=== PATIENT | male | born 1970 | race Caucasian/White ===

== ENCOUNTER 2017-08-15 00:09 | Emergency (ER) | payer OTHER ==
[2017-08-15 00:17] VITALS: RESP 18
[2017-08-15] MEDS ORDERED: HYDROcodone/APAP 7.5-325MG 1 EACH TAB PO ONE (00:29)
[2017-08-15] MEDS ORDERED: KETOROLAC 30 MG/ML 1 ML VIAL IM STA (00:29)
--- NOTE | 2017-08-15 00:47 | ED ---
Upper Extremity HPI - General Chief Complaint: Extremity Injury, Upper Stated Complaint: arm pain Time Seen by Provider: 08/15/17 00:21 Source: patient Mode of arrival: ambulatory Limitations: no limitations - History of Present Illness Initial Comments: 46-year-old male patient presents to the emergency department today for evaluation of right arm pain 1.5 months. Patient states that he initially injured the arm when he was playing catch with his son. States that he had increased pain after throwing the ball multiple times. Patient states that he is unable to maintain flexion of the right bicep against resistance since the injury. Patient feels that his right bicep muscles not working correctly. Patient states he is also been having significant right elbow pain and some mild swelling. Patient states tonight at work he was using a hammer, states that his pain increased significantly. States that the swelling in his right elbow increased significantly. Patient denies any redness to the joint. Denies any fevers or chills. States that the pain is severe. Denies any numbness or tingling to the arm. Patient denies any recent rash, shortness breath, chest pain, abdominal pain, nausea, vomiting, diarrhea, constipation, back pain, numbness, tingling, dizziness, weakness, hematuria, dysuria, urinary urgency, urinary frequency, headache, visual changes, or any other complaints. - Related Data Home Medications Medication Instructions Recorded Confirmed Albuterol Sulfate [Proair Hfa] 1 - 2 puff INHALATION RT-Q6H PRN 07/21/15 Previous Rx's Medication Instructions Recorded Albuterol Inhaler [Ventolin Hfa 1 - 2 puff INHALATION Q4H PRN #1 07/21/15 Inhaler] inhaler Doxycycline Monohydrate [Monodox] 100 mg PO Q12HR #14 cap 07/21/15 Hydrocodone/Acetaminophen [Carrier 1 tab PO Q6HR PRN #12 tab 08/15/17 5-325] Ibuprofen [Motrin] 600 mg PO Q8HR PRN #30 tab 08/15/17 Allergies Allergy/AdvReac Type Severity Reaction Status Date / Time aspirin AdvReac Chest Pain Verified 08/15/17 00:17 Review of Systems ROS Statement: Those systems with pertinent positive or pertinent negative responses have been documented in the HPI. ROS Other: All systems not noted in ROS Statement are negative. Past Medical History Past Medical History: Asthma Additional Past Medical History / Comment(s): gout History of Any Multi-Drug Resistant Organisms: None Reported Past Surgical History: Hernia Repair Past Psychological History: No Psychological Hx Reported Smoking Status: Light tobacco smoker Past Alcohol Use History: Daily Past Drug Use History: None Reported General Exam Limitations: no limitations General appearance: alert, in no apparent distress, other (This is a well- developed, well-nourished adult male patient in mild distress related to pain. Vital signs upon presentation are temperature 98.2F, pulse 97, respirations 18 , blood pressure 188/95, pulse ox 98% on room air.) Eye exam: Present: normal appearance, PERRL, EOMI. Absent: scleral icterus, conjunctival injection, periorbital swelling ENT exam: Present: normal exam, normal oropharynx, mucous membranes moist Respiratory exam: Present: normal lung sounds bilaterally. Absent: respiratory distress, wheezes, rales, rhonchi, stridor Cardiovascular Exam: Present: regular rate, normal rhythm, normal heart sounds. Absent: systolic murmur, diastolic murmur, rubs, gallop, clicks Extremities exam: Present: tenderness (Right upper arm tenderness, right elbow tenderness, right forearm tenderness...tenderness is circumfirential anywhere you touch the arm. ), normal capillary refill, other (Skin to the right arm is pink, warm, and dry. Cap refills less than 3 seconds. Radial pulses are 2+ and equal bilaterally. There is significant swelling noted to the right elbow. Patient is unable to move the right elbow without significant pain.). Absent : normal inspection, full ROM, pedal edema, joint swelling, calf tenderness Neurological exam: Present: alert, oriented X3, CN II-XII intact Psychiatric exam: Present: normal affect, normal mood Skin exam: Present: warm, dry, intact, normal color. Absent: rash Course Vital Signs 08/15/17 08/15/17 00:13 02:21 Temperature 98.2 F 97.6 F Pulse Rate 97 84 Respiratory 18 18 Rate Blood Pressure 188/95 165/87 O2 Sat by Pulse 98 97 Oximetry Medical Decision Making - Medical Decision Making 46 year-old male patient presented to the emergency department today for evaluation of right arm and elbow pain. Physical examination did reveal swelling surrounding the right elbow. Tenderness over the right upper arm, forearm and elbow. X-ray was obtained and showed no evidence of fracture or dislocation. There is no evidence of joint effusion. Given patient's symptoms and difficulty with strength do believe he has a possible muscle tear. He'll be given pain medication and instructed to follow-up with orthopedics for further evaluation. Return parameters were discussed in detail. He verbalizes understanding and agrees with this plan. - Radiology Data Radiology results: report reviewed, image reviewed Sleeping 3 views of the right shoulder obtained. There is spurring on the coronoid process. There is spurring on the olecranon process of the ulna. I see no fracture nor dislocation. Radial head appears intact. Impression by Dr. Thornton shows mild osteoarthritic changes. No fracture seen. Disposition Clinical Impression: Right elbow pain, Muscle tear Disposition: HOME SELF-CARE Condition: Good Instructions: Muscle Strain (ED) Additional Instructions: Rest, ice, and elevate the right elbow. Wear Leighton wrap for comfort and support. Follow-up with orthopedics for recheck as soon as possible. Take medications as directed. Return here immediately for any new, worsening, or concerning symptoms. Prescriptions: Hydrocodone/Acetaminophen [Carrier 5-325] 1 tab PO Q6HR PRN #12 tab PRN Reason: Pain Ibuprofen [Motrin] 600 mg PO Q8HR PRN #30 tab PRN Reason: Pain Is patient prescribed a controlled substance at d/c from ED?: Yes When asked, does pt state using other controlled substances?: No If prescribed controlled substance>3 days was MAPS reviewed?: Prescribed <3 Days If opioid is for acute pain is fill amount 7 days or less?: Yes If Rx opioid, was Start Talking consent form obtained?: Yes Referrals: Reginaldo Selby DO [Primary Care Provider] - 1-2 days Asad Chen DO [Doctor of Osteopathic Medicine] - 1-2 days Time of Disposition: 02:00
--- NOTE | 2017-08-15 01:21 | XR ---
EXAMINATION TYPE: XR elbow complete RT DATE OF EXAM: 08/15/2017 COMPARISON: NONE HISTORY: Elbow pain TECHNIQUE: 3 views FINDINGS: There is spurring on the coronoid process. There is spurring on the olecranon process of th e ulna. I see no fracture nor dislocation. Radial head appears intact. IMPRESSION: Mild osteoarthritic changes. No fracture seen.
[2017-08-15] MEDS ORDERED: ACET/COD 300 MG/30 MG STARTER PACK 6 TAB BTL PO STA (02:00)
[2017-08-15] MEDS ORDERED: IBUPROFEN 600 MG STARTER PACK 4 TAB BTL PO STA (02:00)
[2017-08-15] MEDS ORDERED: MORPHINE SULFATE 2 MG/ML SYRINGE IM STA (02:04)
[2017-08-15 02:22] VITALS: BP 165/87; PULSE 84; TEMP 97.6
== END 2017-08-15 02:22 | disposition home or self-care (01) ==
LOC: EC 00:09
DX: M25.521 Pain in right elbow (principal); S46.911A Strain of unspecified muscle, fascia and tendon at shoulder and upper arm level, right arm, initial encounter; X50.9XXA Other and unspecified overexertion or strenuous movements or postures, initial encounter; F17.200 Nicotine dependence, unspecified, uncomplicated; Z88.6 Allergy status to analgesic agent
CPT/HCPCS: 73080; 99284; 96372 ×2; J1885; J2270

== ENCOUNTER → 2017-09-03 | Outpatient (CLI) | payer OTHER ==
--- NOTE | 2017-09-03 09:22 | MR ---
EXAMINATION TYPE: MR shoulder RT wo con DATE OF EXAM: 09/03/2017 COMPARISON: Right elbow radiographs dated 08/15/2017 HISTORY: Right shoulder pain TECHNIQUE: Multiplanar, multisequence imaging of the right shoulder is performed without contrast. FINDINGS: Rotator Cuff: There is a partial thickness articular sided tear of the insertional fibers of the infr aspinatus measuring 0.4 x 0.9 cm. There is mild tendinopathy of both the infraspinatus and supraspina tus demonstrated as increased signal of the myotendinous junction and insertional fibers. No discrete tear of the supraspinatus. The teres minor and subscapularis are intact and of unremarkable signal a nd muscle volume. Acromioclavicular Joint: There is moderate acromioclavicular arthropathy demonstrated as capsular hyp ertrophy, subchondral cysts, and marginal osteophytes. There is no significant downsloping of the acr omion, however the acromio clavicular arthropathy creates mild internal impingement impressing on the myotendinous junction of the supraspinatus. No signal alteration of the myotendinous junction of the supraspinatus is seen. Glenohumeral Joint: No significant joint space narrowing. Small subchondral cysts are seen of the pos terior glenoid. Labrum: Multiloculated para labral cysts are seen adjacent to the superior posterior glenoid labrum. There is limitation in evaluation of the labrum given the nonarthrographic exam, however there is hig h suspicion for a posterior superior labral tear that is nondisplaced. The superior labral cyst measu res approximately 7 x 2 mm. There is at least degeneration of the inferior glenoid labrum and superio r glenoid labrum. Biceps Tendon: The long head of biceps is in normal location within bicipital groove. There is thicke aquiles of the biceps tendon in its intra-articular portion without discontinuity. Bone marrow signal: No focal abnormal marrow signal is appreciated. Other: A trace amount of fluid is seen within the subcoracoid bursa. IMPRESSION: 1. High suspicion for a posterior superior labral tear as there is a multiloculated paralabral cyst. This could be confirmed with arthrography or arthroscopy. Additionally there is background multifocal labral degeneration. 2. Partial-thickness articular surface tear of the insertional fibers of the infraspinatus. 3. Moderate acromioclavicular arthropathy results in mild internal impingement of the supraspinatus. 4. Mild supraspinatus and infraspinatus tendinopathy. 5. Mild glenohumeral arthropathy. 6. Trace amount of subcoracoid bursal fluid and may relate to bursitis in the appropriate clinical se tting.
== END | disposition home or self-care (01) ==
LOC: RADMRIMAIN 06:45
PROVIDERS: ATTEND Orthopaedic Surgery
DX: S46.011A Strain of muscle(s) and tendon(s) of the rotator cuff of right shoulder, initial encounter (principal); M19.011 Primary osteoarthritis, right shoulder; M67.813 Other specified disorders of tendon, right shoulder; M25.811 Other specified joint disorders, right shoulder

== ENCOUNTER → 2017-12-11 | Outpatient (CLI) | payer OTHER ==
--- NOTE | 2017-12-12 08:19 | US ---
EXAMINATION TYPE: US venous doppler duplex LE BI DATE OF EXAM: 12/11/2017 6:25 PM COMPARISON: NONE CLINICAL HISTORY: I82.402 Acute embolism and thrombosis. SIDE PERFORMED: Pain and edema. TECHNIQUE: The lower extremity deep venous system is examined utilizing real time linear array sonog alejo with graded compression, doppler sonography and color-flow sonography. VESSELS IMAGED: External Iliac Vein (EIV) Common Femoral Vein Deep Femoral Vein Greater Saphenous Vein * Femoral Vein Popliteal Vein Small Saphenous Vein * Proximal Calf Veins (* superficial vessels) There is normal flow, compressibility, vascular waveforms. Right Leg: Negative for DVT Left Leg: Negative for DVT No evidence of DVT bilateral legs. IMPRESSION: No evident deep venous thrombosis at or above the knees. Follow-up as indicated
== END | disposition home or self-care (01) ==
LOC: RADUSMAIN 17:55
PROVIDERS: ATTEND Family Medicine
DX: R22.42 Localized swelling, mass and lump, left lower limb (principal); M79.605 Pain in left leg
CPT/HCPCS: 93970

== ENCOUNTER → 2018-01-18 | Outpatient (CLI) | payer OTHER ==
--- NOTE | 2018-01-18 08:32 | MR ---
EXAMINATION TYPE: MR knee LT wo con DATE OF EXAM: 01/18/2018 COMPARISON: None HISTORY: Left knee pain TECHNIQUE: Multiplanar, multisequence images of the knee is performed without IV contrast. FINDINGS: MEDIAL MENISCUS: Oblique tear posterior horn medial meniscus. Anterior horn is intact. LATERAL MENISCUS: Anterior and posterior horns are intact without tear. CRUCIATE LIGAMENTS: The anterior and posterior cruciate ligaments are intact and unremarkable. COLLATERAL LIGAMENTS: The medial collateral ligament and lateral collateral ligament complex are inta ct and unremarkable. EXTENSOR MECHANISM: Visualized quadriceps and patellar tendons are intact. EFFUSION: No significant suprapatellar joint effusion. POPLITEAL CYST: No popliteal/crenshaw cyst. TRICOMPARTMENT SPACES: Moderate narrowing medial tibiofemoral joint space as well as the patellofemor al joint space. Spur formation about the margins of the femoral condyles and tibial plateaus. CARTILAGE: Cartilaginous thinning identified on medial femoral condyle and medial tibial plateau. Ear ly changes of chondromalacia patella. BONE MARROW SIGNAL: No focal abnormal marrow signal is appreciated. OTHER: There is prepatellar edema and fluid filled reflect prepatellar bursitis. Associated skin thic kening noted. 9 mm ganglion cyst at the insertion of the ACL. IMPRESSION: 1. Degenerative osteoarthritis as noted. 2. Oblique tear posterior horn medial meniscus. 3. Prepatellar bursitis.
== END | disposition home or self-care (01) ==
LOC: RADMRIMAIN 07:46
PROVIDERS: ATTEND Family Medicine
DX: M17.12 Unilateral primary osteoarthritis, left knee (principal); S83.242A Other tear of medial meniscus, current injury, left knee, initial encounter; M70.42 Prepatellar bursitis, left knee

== ENCOUNTER → 2018-04-23 | Outpatient (CLI) | payer OTHER ==
[2018-04-23 12:56] LABS: Basophils # (A) 0.1 k/uL (0-0.2); Basophils % (A) 1 %; Eosinophils # (A) 0.2 k/uL (0-0.7); Eosinophils % (A) 3 %; HCT 40.5 % (39.0-53.0); Lymphocytes # (A) 1.4 k/uL (1.0-4.8); Lymphocytes % (A) 26 %; MCH 31.1 pg (25.0-35.0); MCHC 34.4 g/dL (31.0-37.0); MCV 90.2 fL (80.0-100.0); Mean Platelet Volume 6.6; Monocytes # (A) 0.3 k/uL (0-1.0); Monocytes % (A) 6 %; Neutrophils # (A) 3.4 k/uL (1.3-7.7); Neutrophils % (A) 62 %; Platelet Count 151 k/uL (150-450); WBC 5.5 k/uL (3.8-10.6)
== END ==
LOC: LABPAT 12:01
PROVIDERS: ATTEND Orthopaedic Surgery
DX: Z01.818 Encounter for other preprocedural examination (principal); Z01.812 Encounter for preprocedural laboratory examination; M75.41 Impingement syndrome of right shoulder
CPT/HCPCS: 36415; 80051; 85025; 93005

== ENCOUNTER 2018-05-01 07:48 | Day surgery (SDC) | payer OTHER ==
[2018-04-30 08:48] VITALS: BMI 32.5
--- NOTE | 2018-04-30 15:03 | HP ---
HISTORY AND PHYSICAL DATE SCHEDULED: 05/01/2018 Twin Allison is a 47-year-old patient seen with progressive right shoulder pain. Treatment options were discussed with him. He elected to proceed with arthroscopy. Consent regarding the procedure was obtained. PAST MEDICAL HISTORY: Asthma. PAST SURGICAL HISTORY: Herniorrhaphy. BRIDGES MEDICATIONS: Inhalers. ALLERGIES: ASPIRIN. SOCIAL HISTORY: He currently smokes cigarettes. PHYSICAL EVALUATION OF THE RIGHT SHOULDER.: Flexion 100 degrees, abduction is 90 degrees, external rotation is 30 degrees with pain and significant weakness. Tenderness along the anterior lateral acromion and rotator cuff insertion site. Impingement is positive at 90 degrees. Drop-arm sign is positive. Distal neurovascular exam is intact. RADIOGRAPHS: Radiographs of the right shoulder revealed a type 2 anterior acromion and evidence for acromioclavicular joint osteoarthritis. A right shoulder MRI revealed rotator cuff tear, acromioclavicular joint osteoarthritis and labral tear. IMPRESSION: Right shoulder impingement with rotator cuff tear and acromioclavicular joint osteoarthritis. PLAN: Right shoulder arthroscopy with subacromial decompression, possible arthroscopic rotator cuff repair, probable Carole procedure and debridement. MMODL / IJN: [id number] /
[~2018-05-01 07:48] MED LIST: LACTATED RINGERS 1,000 ML IV SCH; LIDOCAINE 1% 20 ML VIAL (10MG/ML) FOR IV START INTRADERMA PRN; ceFAZolin IN SWFI 2 GM/20 ML SYRINGE IVP ONE; fentaNYL (PF) 50 MCG/ML 2 ML AMP IV PRN
[2018-05-01] MEDS ORDERED: DEXAMETHASONE SOD PHOS (MDV) 100 MG/10 ML VIAL IVP ONE (08:33)
[2018-05-01] MEDS ORDERED: ONDANSETRON 4 MG/2 ML VIAL IVP ONE (08:33)
[2018-05-01] MEDS ORDERED: fentaNYL (PF) 50 MCG/ML 2 ML AMP IVP ONE (08:39)
[2018-05-01] MEDS ORDERED: MIDAZOLAM 2 MG/2 ML VIAL IVP ONE (08:39)
--- NOTE | 2018-05-01 08:50 | P.ONQ ---
Anesthesiology Proc Note - PNB - Peripheral Nerve Block Performed Right Interscalene Single Time Out Performed: Yes (0840) Procedure Start Time: :40 Procedure Stop Time: :45 Indication: Acute Post-Operative Pain, Dx/Pain Location (Right Shoulder Pain), Requested by physician Sedation Type: Sedate with meaningful contact maintained Preparation: Sterile Prep Position: Supine Catheter: None Needle Types: On-Q Needle Size: 50mm (2") Needle Gauge: 21 Technique: Ultrasound Injectate: 0.5% Ropivacaine (see comment for volume) (20ml + 4mg Decadron) Blood Aspirated: No Pain Paresthesia on Injection Noted: No Resistance on Injection: Normal Events: Uneventful and Well Tolerated
[2018-05-01] MEDS ORDERED: SUCCINYLCHOLINE CHLORIDE 100 MG/5 ML SYR IV ONE (09:01)
[2018-05-01] MEDS ORDERED: ePHEDrine SULFATE/0.9% NACL/PF 50 MG/5 ML SYRINGE IV ONE (09:01)
[2018-05-01] MEDS ORDERED: PROPOFOL 10 MG/ML 20 ML VIAL IV ONE (09:01)
[2018-05-01] MEDS ORDERED: LIDOCAINE 1% INJ 10MG/ML (20 ML MDV) ONE (09:01)
[2018-05-01] MEDS ORDERED: MIDAZOLAM 2 MG/2 ML VIAL ONE (09:01)
[2018-05-01] MEDS ORDERED: ROPIVACAINE 5 MG/ML 30 ML VIAL ONE (09:01)
[2018-05-01] MEDS ORDERED: fentaNYL (PF) 50 MCG/ML 2 ML AMP ONE (09:01)
[2018-05-01 10:42] VITALS: RESP 16; TEMP 97.4
--- NOTE | 2018-05-01 10:47 | P.OP ---
Date of Procedure: 05/01/18 Preoperative Diagnosis: Right shoulder impingement Postoperative Diagnosis: 1. Right shoulder rotator cuff tear 2. Right shoulder impingement 3. Right shoulder acromioclavicular joint osteoarthritis 4. Right shoulder partial long head biceps tendon tear 5. Right shoulder superficial anterior labral tear Procedure(s) Performed: 1. Right shoulder arthroscopic rotator cuff repair 2. Right shoulder arthroscopic subacromial decompression 3. Right shoulder arthroscopic Carole procedure 4. Right shoulder arthroscopic biceps tenotomy 5. Right shoulder arthroscopic debridement superficial anterior labral tear Implants: 1Arthrex 4.75 swivel lock anchor Anesthesia: GETA, regional (Interscalene block) Surgeon: Praful Childers Estimated Blood Loss (ml): 15 Pathology: none sent Condition: stable Disposition: PACU Indications for Procedure: 47-year-old patient seen with progressive right shoulder pain. After treatment options were discussed, he elected to proceed with arthroscopy. Operative Findings: See description of procedure Description of Procedure: Patient underwent an interscalene block by department of anesthesia for postoperative pain management. The patient was then taken to the operative suite. The patient underwent a general anesthetic by the department of anesthesia. The patient was placed into a lateral position and secured. There was appropriate padding of the bony prominence. Right shoulder was then prepped and draped in normal sterile orthopedic fashion. We placed the extremity in 10 pounds of longitudinal traction. A posterior incision was now made for a posterior working portal site. The trocar and cannula were inserted into the glenohumeral joint. Arthroscopy was initiated. Spinal needle was now inserted anteriorly, to ascertain the anterior working portal site. An incision was now made in that area, a trocar was inserted followed by a probe. There was some superficial tearing of the anterior labrum. There were grade 1 chondromalacia changes of the humeral head with no osteochondral tears present. There was some hyperemia and partial tearing long head biceps tendon. The remainder of the labrum appeared stable. I performed an arthroscopic biceps tenotomy. I debrided the superficial labral tears down to stable tissue. The residual labrum was stable. Instruments now removed from the glenohumeral joint. Utilizing the posterior working portal site, the trocar and cannula were inserted into the subacromial space. Arthroscopy initiated. I made an incision 2 fingerbreadths lateral to the acromion. I introduced my trocar followed by my ArthroCare ablator. I now began ablating thick subacromial bursal tissue, which exposed the undersurface of the anterior acromion. There was diminished subacromial space. There was a very prominent anterior acromion. A motorized bur was introduced and a subacromial decompression was performed. I also excised some osteophytes off the inferior aspect of the distal clavicle. The AC joint wa s visualized and noted to be fairly arthritic. The motorized bur was introduced in the anterior portal site and a Carole procedure was performed without difficulty, decompressing the AC joint nicely. I turned my attention to the rotator cuff. There was a 1-1.5 cm rotator cuff tear. I debrided the margins getting down to stable tendon tissue. I abraded the footprint with a motorized bur. I passed 2 everted mattress sutures through good bites of rotator cuff tendon. I now repaired the tendon back to the footprint utilizing one single 4.75 Arthrex swivel lock anchor. All residual suture limbs were now clipped. We had good compression of the tendon along the entire footprint. I injected 1 mL Renue intra-articular Instruments now removed from the portal sites. All portal sites were approximated with nylon suture. Sterile dressings were applied followed by a shoulder sling. The patient was awakened, transferred to a bed, and taken to recovery in stable condition.
[2018-05-01 11:31] VITALS: BP 150/91; PULSE 80
== END 2018-05-01 11:43 | disposition home or self-care (01) ==
LOC: OR 07:48
PROVIDERS: ATTEND Orthopaedic Surgery
DX: M75.101 Unspecified rotator cuff tear or rupture of right shoulder, not specified as traumatic (principal); S43.491A Other sprain of right shoulder joint, initial encounter; S46.111A Strain of muscle, fascia and tendon of long head of biceps, right arm, initial encounter; M25.811 Other specified joint disorders, right shoulder; M19.011 Primary osteoarthritis, right shoulder; J45.909 Unspecified asthma, uncomplicated; F17.210 Nicotine dependence, cigarettes, uncomplicated; Z79.899 Other long term (current) drug therapy; Z88.6 Allergy status to analgesic agent
CPT/HCPCS: 29827; 29826; 29824; 29823; 64415; C1713; C1765; J2250; J2405; J2001; J3010; J1100; J2795; J0330; J2704; J0690

== ENCOUNTER 2018-12-19 11:06 | Emergency (ER) | payer OTHER ==
[2018-12-19] MEDS ORDERED: KETOROLAC 60 MG/2 ML VIAL IM STA (12:47)
--- NOTE | 2018-12-19 13:13 | XR ---
EXAMINATION TYPE: XR ankle complete LT, XR foot complete LT DATE OF EXAM: 12/19/2018 CLINICAL HISTORY: Pain after fall injury today. TECHNIQUE: Frontal, lateral and oblique images of the left ankle and foot are obtained. COMPARISON: None. FINDINGS: There is no acute fracture/dislocation evident in the left ankle. The ankle mortise appea rs within normal limits. Moderate soft tissue swelling over the lateral malleolus. There is no acute fracture or dislocation evident in the left foot. Hallux valgus positioning first m etatarsophalangeal joint with mild to moderate narrowing and peripheral spurring. Small inferior calc aneal spur. Overlying soft tissue is unremarkable. IMPRESSION: There is no acute fracture or dislocation in the left ankle or foot.
--- NOTE | 2018-12-19 13:15 | ED ---
General Adult HPI - General Chief complaint: Fall Stated complaint: [facility]HS-Fall Time Seen by Provider: 12/19/18 11:15 Source: patient, RN notes reviewed Mode of arrival: ambulatory Limitations: no limitations - History of Present Illness Initial comments: This is a 48-year-old male who presents emergency Department complaining of left knee ankle and foot pain. Patient states she slipped on some ice this morning and his leg went behind him and he fell down onto his buttocks. Patient states she has no hip pain. Patient denies any back pain. Patient denies any neck injury or head pain. Patient states the lateral aspect of his ankle hurts as well as lateral aspect of his foot. Patient also states that proximal leg hurt as well. - Related Data Home Medications Medication Instructions Recorded Confirmed Albuterol Sulfate [Proair Hfa] 1 - 2 puff INHALATION RT-Q6H PRN 07/21/15 05/01/18 Previous Rx's Medication Instructions Recorded HYDROcodone/APAP 7.5-325MG [Humble 1 - 2 each PO Q6HR PRN #24 tab 05/01/18 7.5-325] Allergies Allergy/AdvReac Type Severity Reaction Status Date / Time aspirin AdvReac causes Verified 12/19/18 11:16 asthma symptoms Review of Systems ROS Statement: Those systems with pertinent positive or pertinent negative responses have been documented in the HPI. ROS Other: All systems not noted in ROS Statement are negative. Past Medical History Past Medical History: Asthma, Pneumonia Additional Past Medical History / Comment(s): Hx gout, hx pneumonia 1-2 yrs ago. Current right shoulder pain. History of Any Multi-Drug Resistant Organisms: None Reported Past Surgical History: Hernia Repair Additional Past Surgical History / Comment(s): HERNIA REPAIR (5 YRS OLD) Past Anesthesia/Blood Transfusion Reactions: No Reported Reaction Past Psychological History: No Psychological Hx Reported Smoking Status: Current some day smoker Past Alcohol Use History: Heavy Past Drug Use History: None Reported - Past Family History Mother Family Medical History: No Reported History General Exam - General Exam Comments Initial Comments: GENERAL Patient is well-developed and well-nourished. Patient is in mild distress. EYES Patient's pupils are equal and round. Extraocular motion is intact SKIN Unremarkable NEURO The patient is alert and oriented 3 PYSCH Patient has normal interpersonal interactions. MUSCULOSKELETAL Patient has no spinous process tenderness in his whole back. Patient has no hip pain. Patient has full range of motion of his hips. Patient does have proximal leg pain particularly over the proximal fibula. Patient has lateral ankle and lateral foot pain on the left. Limitations: no limitations Course Vital Signs 12/19/18 11:11 Temperature 97.6 F Pulse Rate 81 Respiratory 20 Rate Blood Pressure 178/100 O2 Sat by Pulse 98 Oximetry Procedures - Orthopedic Splinting/Casting Injury #1 Lower Extremity Injury Location: long leg, knee, ankle Lower Extremity Immobilizer: posterior splint Medical Decision Making - Medical Decision Making X-ray of the ankle is negative for fracture x-ray of the foot is negative for fracture. Patient is unable to ambulate on the ankle so patient will patient's x-ray of the knee shows a proximal spiral fracture of the fibula. Patient will be placed in a long-leg splint Patient follow-up with orthopedic. Disposition Clinical Impression: Fibular upper end fracture, Ankle sprain Disposition: HOME SELF-CARE Condition: Good Instructions (If sedation given, give patient instructions): Fall Prevention for Older Adults (ED), Leg Fracture (ED) Additional Instructions: Patient [facility]. Patient's take Motrin and Tylenol for pain. Patient should stay nonweightbearing on the left leg. Is patient prescribed a controlled substance at d/c from ED?: No Referrals: Reginaldo Selby DO [Primary Care Provider] - 1-2 days Time of Disposition: 13:59
--- NOTE | 2018-12-19 13:15 | XR ---
EXAMINATION TYPE: XR knee complete LT DATE OF EXAM: 12/19/2018 CLINICAL HISTORY: Pain after fall injury. TECHNIQUE: Three views of the left knee are obtained. COMPARISON: Left knee MRI January 18, 2018. FINDINGS: There is new acute slightly displaced spiral type fracture through proximal fibular metadi aphysis. Adjacent tibia intact. Mild to moderate narrowing medial tibiofemoral compartment with mild spurring. Mild narrowing and spurring patellofemoral compartment . Increased density suprapatellar b ursa suspicious for small to moderate size joint effusion. IMPRESSION: There is new acute slightly displaced spiral type fracture through proximal fibular meta diaphysis.
[2018-12-19 14:23] VITALS: BP 170/89; PULSE 80; RESP 16; TEMP 97.8
== END 2018-12-19 14:34 | disposition home or self-care (01) ==
LOC: EC 11:06
DX: S82.832A Other fracture of upper and lower end of left fibula, initial encounter for closed fracture (principal); S93.402A Sprain of unspecified ligament of left ankle, initial encounter; J45.909 Unspecified asthma, uncomplicated; F17.200 Nicotine dependence, unspecified, uncomplicated; Z88.6 Allergy status to analgesic agent; W00.9XXA Unspecified fall due to ice and snow, initial encounter; Y92.69 Other specified industrial and construction area as the place of occurrence of the external cause; Y99.0 Civilian activity done for income or pay
CPT/HCPCS: 73562; 73610; 73630; 99283; 29505; 96372; J1885

== ENCOUNTER → 2020-10-14 | Outpatient (CLI) | payer BC ==
--- NOTE | 2020-10-14 08:58 | CT ---
EXAMINATION TYPE: CT brain wo/w con DATE OF EXAM: 10/14/2020 COMPARISON: None. HISTORY: Dizziness, Essential Hypertension, syncope. CT DLP: 2646.2 mGycm. Automated Exposure Control for Dose Reduction was Utilized. TECHNIQUE: CT scan of the head is performed without and with IV Contrast, patient injected with 100 mL of Isovue 300. FINDINGS: Noncontrast images show no acute intracranial hemorrhage or midline shift. The ventricles and sulci are within normal limits in size. Sears-white matter differentiation is maintained. Postcon trast images show no suspicious enhancing intraparenchymal mass. Mild mucosal thickening in the perip jane of the bilateral maxillary sinuses. The globes are intact bilaterally. No suspicious opacificati on of the mastoid air cells. IMPRESSION: Mild chronic maxillary sinus disease otherwise unremarkable study.
== END | disposition home or self-care (01) ==
LOC: RADCTMAIN 07:31
PROVIDERS: ATTEND Family Medicine
DX: R42 Dizziness and giddiness (principal); I10 Essential (primary) hypertension; J32.0 Chronic maxillary sinusitis
CPT/HCPCS: 70470; Q9967

== ENCOUNTER → 2020-10-27 | Outpatient (CLI) | payer BC ==
--- NOTE | 2020-10-28 08:54 | US ---
EXAMINATION TYPE: US carotid duplex BILAT DATE OF EXAM: 10/27/2020 COMPARISON: NONE CLINICAL HISTORY: 49-year-old male R55 syncope, I10 hypertension. TECHNIQUE: Carotid duplex ultrasound examination. Indirect Doppler criteria is utilized. FINDINGS: EXAM MEASUREMENTS: RIGHT: Peak Systolic Velocity (PSV) cm/sec ----- Right CCA: 114.2 ----- Right ICA: 84.4 ----- Right ECA: 130.4 ICA/CCA ratio: 0.7 RIGHT: End Diastole cm/sec ----- Right CCA: 27.0 ----- Right ICA: 23.6 ----- Right ECA: 24.8 LEFT: Peak Systolic Velocity (PSV) cm/sec ----- Left CCA: 98.5 ----- Left ICA: 81.3 ----- Left ECA: 101.5 ICA/CCA ratio: 0.8 LEFT: End Diastole cm/sec ----- Left CCA: 23.8 ----- Left ICA: 29.0 ----- Left ECA: 22.3 VERTEBRALS (direction of flow): Right Vertebral: Antegrade Left Vertebral: Antegrade Rhythm: Normal [facility] notes: No significant stenosis IMPRESSION: No hemodynamically significant ICA stenosis on either side. Criteria for Assigning % of Stenosis / Diameter reduction (Estimation based on the indirect measurements of the internal carotid artery velocities (ICA PSV). 1. Normal (no stenosis)=ICA PSV < 125 cm/s: ratio < 2.0: ICA EDV<40 cm/s. 2. Less than 50% stenosis=ICA PSV < 125 cm/s: ratio < 2.0: ICA EDV<40 cm/s. 3. 50 to 69% stenosis=ICA PSV of 125 to 230 cm/s: ration 2.0 ? 4.0: ICA EDV 40-100 cm/s. 4. Greater than 70% stenosis to near occlusion= ICA PSV > 230 cm/s: ratio > 4.0: ICA EDV > 100 cm/s. 5. Near occlusion= ICA PSV velocities may be low or undetectable: variable ratio and ICA EDV. 6. Total occlusion=unable to detect flow.
== END | disposition home or self-care (01) ==
LOC: RADUSWWP 16:17
PROVIDERS: ATTEND Family Medicine
DX: R55 Syncope and collapse (principal); I10 Essential (primary) hypertension
CPT/HCPCS: 93880

== ENCOUNTER → 2020-10-29 | Outpatient (CLI) | payer BC ==
--- NOTE | 2020-10-29 10:58 | EST ---
EXERCISE STRESS DATE OF STUDY: 10/29/2020 AGE: 49 SEX: M HT: 5'11" WT: 251 lbs. PROTOCOL: Vasquez STAGE: 3 DURATION OF EXERCISE: 9:00 HEART RATE REST: 64 BLOOD PRESSURE REST: 154/96 MAXIMUM HEART RATE ACHIEVED: 152 MAXIMUM BLOOD PRESSURE: 189/98 85% MPHR: 145 100% MPHR: 171 METS: 10.3 INDICATIONS: Hypertension CLINICAL INFORMATION: STRESS DATA: Heart rate 64, pressure 154/96 mmHg. Baseline EKG showed sinus mechanism. The patient exercised on the treadmill according to Vasquez protocol for a total of 9 minutes and achieved 10.3 METS. Max heart rate was 152, which is about 89% of maximum predicted heart rate, and maximum blood pressure was 189/95 mmHg. Clinically the patient did not have any symptoms of chest pain or chest discomfort and the EKG did not show any significant ST or T-wave abnormalities concerning for ischemia. CONCLUSION: 1. Excellent exercise tolerance. 2. Normal EKG in response to exercise. 3. Essentially normal stress test for the patient. MMODL / IJN: [id number] /
--- NOTE | 2020-10-29 11:54 | ECHOF ---
Referral Reason:I10 Essential Hypertension MEASUREMENTS -------- HEIGHT: 180.3 cm WEIGHT: 113.4 kg BP: RVIDd: 3.4 cm (< 3.3) IVSd: 1.5 cm (0.6 - 1.1) LVIDd: 5.2 cm (3.9 - 5.3) LVPWd: 1.5 cm (0.6 - 1.1) IVSs: 1.9 cm LVIDs: 3.3 cm LVPWs: 2.0 cm LA Diam: 3.8 cm (2.7 - 3.8) LAESV Index (A-L): 17.76 ml/m Ao Diam: 3.6 cm (2.0 - 3.7) AV Cusp: 2.6 cm (1.5 - 2.6) MV EXCURSION: 20.477 mm (> 18.000) MV EF SLOPE: 120 mm/s (70 - 150) EPSS: 0.7 cm MV E Sebastian: 0.99 m/s MV DecT: 200 ms MV A Sebastian: 0.80 m/s MV E/A Ratio: 1.24 RAP: 5.00 mmHg RVSP: 27.81 mmHg FINDINGS -------- Sinus rhythm. This was a technically adequate study. The left ventricular size is normal. There is moderate concentric left ventricular hypertrophy. O verall left ventricular systolic function is normal with, an EF between 60 - 65 %. The right ventricle is mildly enlarged. Normal LA size by volume 22+/-6 ml/m2. The right atrium is normal in size. Interatrial and interventricular septum intact. The aortic valve is trileaflet, and appears structurally normal. No aortic stenosis or regurgitation. The mitral valve is normal. Mild tricuspid regurgitation present. Right ventricular systolic pressure is normal at < 35 mmHg. Trace/mild (physiologic) pulmonic regurgitation. The aortic root size is normal. Normal inferior vena cava with normal inspiratory collapse consistent with estimated right atrial pre ssure of 5 mmHg. There is no pericardial effusion. CONCLUSIONS -------- 1. The left ventricular size is normal. 2. There is moderate concentric left ventricular hypertrophy. 3. Overall left ventricular systolic function is normal with, an EF between 60 - 65 %. 4. The right ventricle is mildly enlarged. 5. Normal LA size by volume 22+/-6 ml/m2. 6. The aortic valve is trileaflet, and appears structurally normal. No aortic stenosis or regurgitati on. 7. The mitral valve is normal. 8. Mild tricuspid regurgitation present. 9. Trace/mild (physiologic) pulmonic regurgitation. 10. There is no pericardial effusion. BUSINESS PROCESS LEAD: Bessie Mansfield RDCS
== END | disposition home or self-care (01) ==
LOC: RADNMMAIN 08:32
PROVIDERS: ATTEND Family Medicine
DX: I08.8 Other rheumatic multiple valve diseases (principal); I10 Essential (primary) hypertension
CPT/HCPCS: 93017; 93306

== ENCOUNTER 2022-12-19 14:33 | Emergency (ER) | payer BC ==
--- NOTE | 2022-12-19 16:20 | CT ---
EXAMINATION TYPE: CT brain slick wo con DATE OF EXAM: 12/19/2022 COMPARISON: 10/14/2020 HISTORY: 52-year-old male headache fall, +loc x few days ago CT DLP: 1610.4 mGycm Automated exposure control for dose reduction was used. Technique: Examination of the head was done in axial plane without intravenous contrast. Coronal and sagittal reconstructions performed. CT of the cervical spine was obtained in axial plane without intravenous injection of contrast mater ial. Coronal and sagittal reformatted images were obtained from the axial views for evaluation of f ractures, spinal alignment and canal. FINDINGS: Head: There is no evidence of acute intracranial hemorrhage, acute ischemic changes, mass, mass-effect, or extra-axial fluid collection. There is no effacement of cerebral sulci or basal subarachnoid cister ns. There is no hydrocephalus. There is no midline shift. Sears-white matter distinction is preserv ed. Moderate mucosal thickening ethmoid air cells. Mild mucosal thickening maxillary sinuses. Orbits and globes appear intact. No calvarial fracture. Mastoid air cells are well pneumatized. 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 This session. Degenerative changes especially C3-C5 levels. Disc osteophyte complexes here may contri bute to moderate spinal canal stenosis. Assessment of the spinal canal is limited due to elevated pat ient shoulders. Multilevel facet and uncovertebral joint arthropathy is present. No acute fracture seen of the cervic al spine. Variable mild neuroforaminal stenoses throughout, more moderate to severe on the right at C3-C4. Sagittal and coronal reformatted images confirm above findings. COMBINED IMPRESSION: 1. No acute intracranial abnormality seen. 2. Moderate to advanced spondylotic changes especially C3-C5 levels. No acute fracture or malalignmen t seen.
--- NOTE | 2022-12-19 16:37 | ED ---
General Adult HPI - General Chief complaint: Head Injury Stated complaint: Head Injury,poss Concussion Time Seen by Provider: 12/19/22 16:00 Source: patient, family, RN notes reviewed, old records reviewed Mode of arrival: ambulatory Limitations: no limitations - History of Present Illness Initial comments: This is a 52-year-old male who presents emergency department 3 days after having fallen and hit his head quite hard. Patient went to catch a friend of his who was falling and he fell back and snapped his head onto the ground. Patient did not lose consciousness according to the but he does not remember the incident arm every evening eating dinner that night. Patient states since then he's had a bit of a headache and gets dizzy a little bit so he decided come to the emergency department. Patient denies any neck pain. Patient denies any numbness weakness. Patient denies any other injury at this time. Eyes any nausea or vomiting. Patient denies any ataxia - Related Data Home Medications Medication Instructions Recorded Confirmed Albuterol Sulfate [Proair Hfa] 1 - 2 puff INHALATION RT-Q6H PRN 07/21/15 05/01/18 Previous Rx's Medication Instructions Recorded HYDROcodone/APAP 7.5-325MG [Castine 1 - 2 each PO Q6HR PRN #24 tab 05/01/18 7.5-325] Allergies Allergy/AdvReac Type Severity Reaction Status Date / Time aspirin AdvReac causes Verified 12/19/18 11:16 asthma symptoms Review of Systems ROS Statement: Those systems with pertinent positive or pertinent negative responses have been documented in the HPI. ROS Other: All systems not noted in ROS Statement are negative. Past Medical History Past Medical History: Asthma, Pneumonia Additional Past Medical History / Comment(s): Hx gout, hx pneumonia 1-2 yrs ago. Current right shoulder pain. History of Any Multi-Drug Resistant Organisms: None Reported Past Surgical History: Hernia Repair Additional Past Surgical History / Comment(s): HERNIA REPAIR (5 YRS OLD) Past Anesthesia/Blood Transfusion Reactions: No Reported Reaction Past Psychological History: No Psychological Hx Reported Past Alcohol Use History: Heavy Past Drug Use History: None Reported - Past Family History Mother Family Medical History: No Reported History General Exam - General Exam Comments Initial Comments: GENERAL: Patient is well-developed and well-nourished. Patient is nontoxic and well- hydrated and is in no acute distress. ENT: Neck is soft and supple. No significant lymphadenopathy is noted. Oropharynx is clear. Moist mucous membranes. Neck has full range of motion without eliciting any pain. No signs of trauma to the patient's skull EYES: The sclera were anicteric and conjunctiva were pink and moist. Extraocular movements were intact and pupils were equal round and reactive to light. Eyelids were unremarkable. SKIN: Skin is clear with no lesions or rashes and otherwise unremarkable. NEUROLOGIC: Patient is alert and oriented x3. Cranial nerves II through XII are grossly intact. Motor and sensory are also intact. Normal speech, volume and content. Symmetrical smile. MUSCULOSKELETAL: Normal extremities with adequate strength and full range of motion. No lower extremity swelling or edema. No calf tenderness. LYMPHATICS: No significant lymphadenopathy is noted PSYCHIATRIC: Normal psychiatric evaluation. Limitations: no limitations Course Vital Signs 12/19/22 15:29 Temperature 98.5 F Pulse Rate 79 Respiratory 20 Rate Blood Pressure 209/101 O2 Sat by Pulse 99 Oximetry Medical Decision Making - Medical Decision Making Was pt. sent in by a medical professional or institution (, PA, FURNACE KEEPER, urgent care, hospital, or group home...) When possible be specific @ -No Did you speak to anyone other than the patient for history (EMS, parent, family, police, friend...)? What history was obtained from this source @ -No Did you review nursing and triage notes (agree or disagree)? Why? @ -I reviewed and agree with nursing and triage notes Were old charts reviewed (outside hosp., previous admission, EMS record, old EKG, old radiological studies, urgent care reports/EKG's, group home records)? Report findings @ -No old charts were reviewed Differential Diagnosis (chest pain, altered mental status, abdominal pain women, abdominal pain men, vaginal bleeding, weakness, fever, dyspnea, syncope, headache, dizziness, GI bleed, back pain, seizure, CVA, palpatations, mental health, musculoskeletal)? @ -Skull fracture, epidural, subdural, intraparenchymal hemorrhage, cervical fracture, this is not all inclusive list EKG interpreted by me (3pts min.). @ -As above X-rays interpreted by me (1pt min.). @ -None done CT interpreted by me (1pt min.). @ -CT of the brain and C-spine showed no acute abnormality U/S interpreted by me (1pt. min.). @ -None done What testing was considered but not performed or refused? (CT, X-rays, U/S, labs)? Why? @ -None What meds were considered but not given or refused? Why? @ -None Did you discuss the management of the patient with other professionals (professionals i.e. Dr., PA, FURNACE KEEPER, lab, RT, psych nurse, social media developer, credit product analyst, teacher, humane officer, family independence case manager)? Give summary @ -No Was smoking cessation discussed for >3mins.? @ -No Was critical care preformed (if so, how long)? @ -No Were there social determinants of health that impacted care today? How? (Homelessness, low income, unemployed, alcoholism, drug addiction, transportation, low edu. Level, literacy, decrease access to med. care, senior living, rehab)? @ -No Was there de-escalation of care discussed even if they declined (Discuss DNR or withdrawal of care, Hospice)? DNR status @ -No What co-morbidities impacted this encounter? (DM, HTN, Smoking, COPD, CAD, Cancer, CVA, ARF, Chemo, Hep., AIDS, mental health diagnosis, sleep apnea, morbid obesity)? @ -None Was patient admitted / discharged? Hospital course, mention meds given and route, prescriptions, significant lab abnormalities, going to OR and other pertinent info. @ -I discussed results with the patient and he was comfortable going home at this time he will follow-up with neurology if symptoms persist Undiagnosed new problem with uncertain prognosis? @ -No Drug Therapy requiring intensive monitoring for toxicity (Heparin, Nitro, Insulin, Cardizem)? @ -No Were any procedures done? @ -No Diagnosis/symptom? @ -Concussion Acute, or Chronic, or Acute on Chronic? @ -Acute Uncomplicated (without systemic symptoms) or Complicated (systemic symptoms)? @ -Complicated Side effects of treatment? @ -No Exacerbation, Progression, or Severe Exacerbation? @ -No Poses a threat to life or bodily function? How? (Chest pain, [place], [place], pneumonia, PE, COPD, DKA, ARF, appy, cholecystitis, CVA, Diverticulitis, Homicidal, Suicidal, threat to staff... and all critical care pts) @ -No Disposition Clinical Impression: Concussion without loss of consciousness Disposition: HOME SELF-CARE Instructions (If sedation given, give patient instructions): Concussion (ED) Is patient prescribed a controlled substance at d/c from ED?: No Referrals: Reginaldo Selby DO [Primary Care Provider] - 1-2 days Time of Disposition: 16:37
[2022-12-19 17:08] VITALS: BP 154/72; PULSE 71; RESP 18; TEMP 98.7
== END 2022-12-19 17:02 | disposition home or self-care (01) ==
LOC: EC 14:33
DX: S06.0X0A Concussion without loss of consciousness, initial encounter (principal); J45.909 Unspecified asthma, uncomplicated; R40.2410 Glasgow coma scale score 13-15, unspecified time; Z88.6 Allergy status to analgesic agent; Z79.899 Other long term (current) drug therapy; W01.198A Fall on same level from slipping, tripping and stumbling with subsequent striking against other object, initial encounter; Y92.009 Unspecified place in unspecified non-institutional (private) residence as the place of occurrence of the external cause
CPT/HCPCS: 70450; 72125; 99283

== ENCOUNTER → 2023-12-05 | Outpatient (CLI) | payer BC ==
--- NOTE | 2023-12-05 16:30 | XR ---
EXAMINATION TYPE: XR chest 2V DATE OF EXAM: 12/05/2023 4:06 PM CLINICAL INDICATION: Male, 53 years old with history of Z87.891 HISTORY OF TOBACCO USE; [facility] COMPARISON: Chest radiographs from 08/27/2015 TECHNIQUE: XR chest 2V Frontal view of the chest. FINDINGS: Lungs/Pleura: There is no evidence of pleural effusion, focal consolidation, or pneumothorax. Pulmonary vascularity: Unremarkable. Heart/mediastinum: Cardiomediastinal silhouette is unremarkable. Musculoskeletal: No acute osseous pathology. IMPRESSION: No acute cardiopulmonary disease/process. [facility] Jacinto Kelly, , 12/05/2023 4:28 PM
== END | disposition home or self-care (01) ==
LOC: RADXRMAIN 15:51
PROVIDERS: ATTEND Family Medicine
DX: Z87.891 Personal history of nicotine dependence (principal)
CPT/HCPCS: 71046